=== PATIENT | female | born 1990 | race Caucasian/White ===

== ENCOUNTER 2022-07-08 21:49 | Outpatient (CLI) | payer MEDICAID, OTHER ==
[~2022-07-08] VITALS: Ht 157.5 cm; Wt 64.0 kg
[2022-07-08] MEDS ORDERED: PNV-9 PO (22:00)
[2022-07-08 22:19] LABS: BILIRUBIN,URINE NEGATIVE (NEGATIVE); CLARITY,URINE SL CLOUDY; COLOR,URINE YELLOW; GLUCOSE, URINE (UA) NEGATIVE (NEGATIVE); KETONES,URINE NEGATIVE (NEGATIVE); LEUKOCYTE ESTERASE ,URINE 3+ (NEGATIVE); NITRITE,URINE NEGATIVE (NEGATIVE); PROTEIN,URINE NEGATIVE (NEGATIVE)
[2022-07-08 22:28] LABS: AMORPHOUS SEDIMENT,UR LARGE AMOR PHOSPHATE /LPF; BACTERIA,URINE TRACE /HPF; SQUAMOUS EPITHELIAL CELL,UR 25-50 /HPF
[2022-07-08 22:47] VITALS: BP 107/67
--- NOTE | 2022-07-09 08:06 | Physician Query-Final Dx ---
ROLA,07/09/22 0806: Clinic Account Progress/Dx Physician Query: Please give diagnosis Please include # weeks gestation Date of Service July 08, 2022 at 21:49 CLOTILDE MEDINA DO 07/30/22 0928: Clinic Account Progress/Dx DIAGNOSIS: Diagnosis 25 wk gestation abdominal pain ROLA,FebJuly 09, 2022 08:06 CLOTILDE MEDINA DO Jul 30, 2022 09:28
== END 2022-07-08 22:56 | disposition home or self-care (01) ==
LOC: LDRP 21:49 → WSo 21:49
PROVIDERS: ATTEND Family Medicine
DX: O99.891 Other specified diseases and conditions complicating pregnancy (principal); R10.9 Unspecified abdominal pain; Z3A.25 25 weeks gestation of pregnancy
CPT/HCPCS: 81000; G0463; 99212

== ENCOUNTER 2022-08-27 22:38 | Outpatient (CLI) | payer MEDICAID ==
[~2022-08-27] VITALS: Ht 157.5 cm; Wt 65.0 kg
[~2022-08-27 22:38] MED LIST: PNV-9 PO
[2022-08-27 22:58] VITALS: BP 114/62
[2022-08-27 23:06] LABS: BILIRUBIN,URINE NEGATIVE (NEGATIVE); CLARITY,URINE CLEAR; COLOR,URINE YELLOW; GLUCOSE, URINE (UA) NEGATIVE (NEGATIVE); KETONES,URINE NEGATIVE (NEGATIVE); LEUKOCYTE ESTERASE ,URINE 2+ (NEGATIVE); NITRITE,URINE NEGATIVE (NEGATIVE); PROTEIN,URINE NEGATIVE (NEGATIVE)
[2022-08-27 23:16] LABS: BACTERIA,URINE MODERATE /HPF; RBC,URINE 0-2 /HPF
[2022-08-27 23:17] LABS: AMORPHOUS SEDIMENT,UR RARE AMOR URATES /LPF
[2022-08-27] MEDS ORDERED: CEPHALEXIN 250 MG (KEFLEX) CAP PO ONE (23:30)
[2022-08-28 00:15] VITALS: BP 118/73
--- NOTE | 2022-08-28 07:53 | Physician Query-Final Dx ---
Clinic Account Progress/Dx Physician Query: Please give diagnosis Please include # weeks gestation Date of Service Aug 27, 2022 at 22:38 ROLA,FebAug 28, 2022 07:53
== END 2022-08-28 00:29 | disposition home or self-care (01) ==
LOC: WSo 22:38 → LDRP 22:38 → WSo 08-28 00:29
PROVIDERS: ATTEND Family Medicine
DX: O62.9 Abnormality of forces of labor, unspecified (principal); O46.90 Antepartum hemorrhage, unspecified, unspecified trimester; Z3A.00 Weeks of gestation of pregnancy not specified
CPT/HCPCS: 81000; 84112; 87077; 87088; 87186; G0463; 99214

== ENCOUNTER 2022-09-20 02:50 | Outpatient (CLI) | payer MEDICAID ==
[~2022-09-20] VITALS: Ht 157.5 cm; Wt 65.8 kg
[2022-09-20] MEDS ORDERED: MELA10TA3 PO (03:08)
[2022-09-20 03:10] VITALS: BP 121/69
[2022-09-20 03:12] LABS: BILIRUBIN,URINE NEGATIVE (NEGATIVE); CLARITY,URINE CLEAR; COLOR,URINE YELLOW; GLUCOSE, URINE (UA) NEGATIVE (NEGATIVE); KETONES,URINE NEGATIVE (NEGATIVE); LEUKOCYTE ESTERASE ,URINE 2+ (NEGATIVE); NITRITE,URINE POSITIVE (NEGATIVE); PH,URINE 6.5 (5-9); PROTEIN,URINE NEGATIVE (NEGATIVE)
[2022-09-20 03:22] LABS: BACTERIA,URINE LARGE /HPF
[2022-09-20] MEDS ORDERED: ACETAMINOPHEN 500 MG TABLET PO ONE (03:30)
[2022-09-20] MEDS ORDERED: hydrOXYzine (VISTARIL/ATARAX) 25 MG capsule/tablet PO ONE (03:30)
[2022-09-20] MEDS ORDERED: NITROFURANTOIN 100 MG (MACROBID) CAPSULE PO ONE ×2 (03:30→03:39)
[2022-09-20] MEDS ORDERED: hydrOXYzine (VISTARIL/ATARAX) 25 MG capsule/tablet ONE (03:31)
[2022-09-20] MEDS ORDERED: ACETAMINOPHEN 500 MG TABLET ONE (03:31)
[2022-09-20 04:57] VITALS: BP 115/70
[2022-09-20] MEDS ORDERED: TERBUTALINE INJ 1 MG/ML (BRETHINE) AMP ONE (05:08)
[2022-09-20] MEDS ORDERED: TERBUTALINE INJ 1 MG/ML (BRETHINE) AMP SC ONE (05:15)
--- NOTE | 2022-09-21 09:14 | Physician Query-Final Dx ---
Clinic Account Progress/Dx Physician Query: Please give diagnosis Please include # weeks gestation Date of Service Sep 20, 2022 at 02:50 ROLA,FebSep 21, 2022 09:14
== END 2022-09-20 07:34 | disposition home or self-care (01) ==
LOC: LDRP 02:50 → WSo 02:50
PROVIDERS: ATTEND Family Medicine
DX: O62.9 Abnormality of forces of labor, unspecified (principal); Z3A.35 35 weeks gestation of pregnancy
CPT/HCPCS: 81000; 87088; 96372; 99213

== ENCOUNTER 2022-09-23 05:31 | Outpatient (CLI) | payer MEDICAID ==
[~2022-09-23] VITALS: Ht 157.5 cm; Wt 65.9 kg
[~2022-09-23 05:31] MED LIST changes: +MELA10TA3 PO
[2022-09-23] MEDS ORDERED: NITR100C PO (12:23)
== END 2022-09-23 12:49 | disposition home or self-care (01) ==
LOC: PREOP 05:31
PROVIDERS: ATTEND Obstetrics & Gynecology
DX: Z01.818 Encounter for other preprocedural examination (principal)

== ENCOUNTER 2022-09-30 05:29 | Inpatient (IN) | payer MEDICAID ==
[2022-09-30] VITALS (9 sets, daily range): BP systolic 97–129; BP diastolic 43–80
[~2022-09-30] VITALS: Ht 157.5 cm; Wt 65.0 kg
[~2022-09-30 05:29] MED LIST changes: +NITR100C PO
[2022-09-30] MEDS ORDERED: METOCLOPRAMIDE INJ 10 MG/2 ML (REGLAN) IV ONE (05:45)
[2022-09-30] MEDS ORDERED: LACTATED RINGERS 1,000 ML IV PRN ×2 (05:45)
[2022-09-30] MEDS ORDERED: CLINDAMYCIN 600 MG/50 ML IVPB 50 ML IV ONE (05:45)
[2022-09-30] MEDS ORDERED: CITRIC ACID/SODIUM CITRATE ORAL SOLN 30 ML PO ONE (05:45)
[2022-09-30] MEDS ORDERED: FAMOTIDINE INJ 20MG/2ML VIAL IV ONE (05:45)
[2022-09-30 06:05] LABS: BASOPHILS # (AUTO) 0.1 10^3/uL (0.0-0.1); BASOPHILS % (AUTO) 1 % (0-10); EOSINOPHILS # (AUTO) 0.4 10^3/uL (0.0-0.3); EOSINOPHILS % (AUTO) 3 % (0-10); HEMATOCRIT 33 % (35-52); HEMOGLOBIN 10.9 g/dL (11.5-16.0); LYMPHOCYTES # (AUTO) 3.2 10^3/uL (1.0-4.0); LYMPHOCYTES % (AUTO) 27 % (12-44); MEAN CORPUSCULAR HEMOGLOBIN 28 pg (25-34); MEAN CORPUSCULAR HGB CONC 33 g/dL (32-36); MEAN CORPUSCULAR VOLUME 86 fL (80-99); MEAN PLATELET VOLUME 9.6 fL (9.0-12.2); MONOCYTES # (AUTO) 1.2 10^3/uL (0.0-1.0); MONOCYTES % (AUTO) 10 % (0-12); NEUTROPHILS # (AUTO) 7.1 10^3/uL (1.8-7.8); NEUTROPHILS % (AUTO) 59 % (42-75); PLATELET COUNT 446 10^3/uL (130-400)
[2022-09-30] MEDS ORDERED: fentaNYL INJECTION 100 MCG/2 ML VIAL ONE (07:03)
[2022-09-30] MEDS ORDERED: OXYTOCIN PRE-MIX DRIP 1,000 ML IV ONE (07:03)
[2022-09-30] MEDS ORDERED: ONDANSETRON 4 MG/2 ML (SDV) Z0FRAN ONE (07:03)
--- NOTE | 2022-09-30 07:15 | History & Physical-OB ---
OB - Chief Complaint & HPI Date/Time Date of Admission: Date of Admission: Sep 30, 2022 at 05:29 Date seen by a Provider: Sep 30, 2022 Time Seen by a Provider: 07:00 Chief Complaint/History OB-Reason for Admission/Chief: Section Hx : 5 Hx Para: 3 Expected Date of Delivery: Oct 20, 2022 Gestational Age in Weeks: 37 Gestational Age in Days: 1 Indication for : desires repeat Admission Nurse Assessment Rev: Yes Allergies and Home Medications Allergies Coded Allergies: Penicillins (Verified Allergy, Severe, Anaphylaxis, 09/23/22) Patient Home Medication List Home Medication List Reviewed: Yes Melatonin (Melatonin) 10 Mg Tablet.er, 20 MG PO, (Reported) Entered as Reported by: RAMYA NG on 09/20/22 0308 Last Action: Reviewed Nitrofurantoin Macrocrystal (Nitrofurantoin) 100 Mg Capsule, 100 MG PO BID, ( Reported) Entered as Reported by: Leonela Willis on 09/23/22 1223 Last Action: Reviewed Pnv 119/Iron Fum/Folic Acid ( 19 Tablet) 29 Mg Iron-1 Mg Tablet, 1 EACH PO DAILY, (Reported) Entered as Reported by: Pinky Dooley on 07/08/22 2200 Last Action: Reviewed OB - History Hx of Present Care: Yes Ultrasounds: Normal mid trimester US Obstetrical Complications: Autoimmune Disease (JKA+) Medical Complications: None Information Induced Hypertension: No Maternal Gestational Diabetes: No Hemorrhage: No Obstetrical History Hx : 5 Hx Para: 3 Hx # Term Pregnancies: 2 Hx # Pregnancies: 1 Number of Living Children: 3 Hx Total # of Abortions (Spona: 1 Hx Multiple Gestation: No Hx Ectopic : No Hx Stillbirth: No Hx Complication: No Hx Induced Hypertens: No Hx Maternal Gestational Diabet: No Hx Hemorrhage: No Delivery History Hx Section: Yes (X3) Adverse Rxn to Tranfusion: No Patient Past Medical History MOHR Social History/Family History 2nd Hand Smoke Exposure: No Immunizations First/Initial COVID19 Vaccine: NONE Second COVID19 Vaccination: NONE Third COVID19 Vaccination Date: NONE Hepatitis A: Yes Hepatitis B: Yes Tetanus Booster (TDap): Less than 5yrs OB - Admission Exam Physical Exam Vitals: Vital Signs 09/30/22 06:00 Temp 36.6 Pulse 87 Resp 18 Pulse Ox 98 O2 Delivery Room Air HEENT: NCAT Heart: Rhythm Normal Lungs: Clear Abdomen: Gravid Extremities: Normal Reflexes: Normal Membranes: Intact Heart Rate: 130's Accelerations: Accelerations Present Decelerations: No Decelerations Short Term Variability: Present Flight Reservations Manager Variability: Average (6-25) Contractions on Admission: 6-10 Minutes Apart Intensity: Mild Labs Laboratory Tests Test 09/30/22 05:50 Range/Units White Blood Count 12.0 H 4.3-11.0 10^3/uL Red Blood Count 3.88 3.80-5.11 10^6/uL Hemoglobin 10.9 L 11.5-16.0 g/dL Hematocrit 33 L 35-52 % Mean Corpuscular Volume 86 80-99 fL Mean Corpuscular Hemoglobin 28 25-34 pg Mean Corpuscular Hemoglobin Concent 33 32-36 g/dL Red Cell Distribution Width 14.1 10.0-14.5 % Platelet Count 446 H 130-400 10^3/uL Mean Platelet Volume 9.6 9.0-12.2 fL Immature Granulocyte % (Auto) 1 % Neutrophils (%) (Auto) 59 42-75 % Lymphocytes (%) (Auto) 27 12-44 % Monocytes (%) (Auto) 10 0-12 % Eosinophils (%) (Auto) 3 0-10 % Basophils (%) (Auto) 1 0-10 % Neutrophils # (Auto) 7.1 1.8-7.8 10^3/uL Lymphocytes # (Auto) 3.2 1.0-4.0 10^3/uL Monocytes # (Auto) 1.2 H 0.0-1.0 10^3/uL Eosinophils # (Auto) 0.4 H 0.0-0.3 10^3/uL Basophils # (Auto) 0.1 0.0-0.1 10^3/uL Immature Granulocyte # (Auto) 0.2 H 0.0-0.1 10^3/uL OB - Assessment/Plan/Diagnosis Assessment Assessment: section Admission Dx IUP@ 37w1d JKA+ previous CSx3 Admission Status: Inpatient Order (span 2 midnights) Reason for Inpatient Admission: Repeat LTCS Plan Plan: Section Copy Copies To 1: TANNER RIVERA MD, VICTORIA A DO Sep 30, 2022 07:15
[2022-09-30] MEDS ORDERED: KETAMINE 50 MG/5 ML SYRINGE ONE (07:39)
[2022-09-30] MEDS ORDERED: LIDOCAINE 1% INJ 10 ML VIAL ONE (07:40)
[2022-09-30] MEDS ORDERED: MIDAZOLAM 2 MG/2 ML (VERSED) VIAL ONE (07:42)
[2022-09-30] MEDS ORDERED: BUPIVACAINE 0.25% 10 ML VIAL ONE (08:06)
[2022-09-30] MEDS ORDERED: proPOfol 200 MG/20 ML (DIPRIVAN) VIAL IV ONE (08:21)
[2022-09-30] MEDS ORDERED: LIDOCAINE 1% INJ 10 ML VIAL INJ ONE (08:51)
--- NOTE | 2022-09-30 08:51 | Cesarean Section Operative ---
Procedure Procedure Note Pre-operative Diagnosis: Lea christian (30 /Para 5 / 3, Gestational Age (wks)[id number] +JKA antibody Post-operative Diagnosis: same Plus liveborn female Procedure: Repeat low transverse section Physician: SINGH CEDENO Feltmaker: DANNA Rick Estimated blood loss: 1000 mL Disposition: Stable to PACU Counts correct x3 Findings: Liveborn female , Apgars8/9, weight 5#12ozs, intact placenta, 3vc, normal appearing uterus, tubes, and ovaries. Indications:Lea christian (30 /Para 5 / 3,Gestational Age (wks) 37 presenting for []. Procedure Details: The patient was seen in pre-op and the procedure was discussed with the patient in full, including the risks, benefits, and alternatives. All questions were answered. The patient was taken to the operating room and a time out was performed, verifying patient and procedure. After spinal anesthesia was placed by our anesthesia colleagues, the patient was placed in the dorsal supine with leftward tilt for uterine displacement.~ Her abdomen was then prepped and draped in the typical sterile fashion. A Pfannenstiel skin incision was made around the old scar and removed using a scalpel as well as cautery and carried down through the underlying fascia. The fascia was incised in the midline and tented up using Krysta clamps. On both the inferior and superior fascia side the rectus muscle was dissected off bluntly and sharply using Krishnamurthy scissors and Bovie cautery. There was extensive adhesions. The peritoneum was identified and entered bluntly in the midline. This was then stretched laterally using manual strength. After entering the abdominal cavity and noting extensive intraperitoneal adhesions, the lower uterine segment was visualized. A scalpel was utilized to make a low transverse uterine incision. Amniotomy was performed with return of clear fluid. Mc forceps were used to bring the infant's head to the level of the incision. Fundal pressure was applied and was delivered with the aid of Mc Forceps without difficulty. Mouth and nares were suctioned with bulb suction. After 60seconds the umbilical cord was clamped and cut, the infant was handed off to the pediatric staff. A sample of cord blood was then obtained. The placenta was delivered intact via uterine massage. The uterus was left inside because of the extensive adhesions and cleared of all clots and debris. The uterine incision was closed using 0 Vicryl in a running interlocking fashion. A second imbricated layer was placed using 0 Vicryl in a running fashion as well. Again the hysterotomy site was examined and after several interruptes stitches with 0 vicryl hemostasis was obtained. The bilateral tubes and ovaries appeared normal. The fascia was closed with 0 Vicryl in a running fashion. The subcutaneous space was hemostatic, undermined and irrigated. The skin was then closed using 4-0 Monocryl in a running subcuticular fashion. The s kin edges were reapproximated together and were hemostatic. Dermabond was applied. All sponge, lap and needle counts were correct x3 at the end of the procedure per nursing. Vitals - Labs Vital Signs - I&O Vital Signs Date Time Temp Pulse Resp B/P (MAP) Pulse Ox O2 Delivery O2 Flow Rate FiO2 09/30/22 06:00 36.6 87 18 98 Room Air Labs Laboratory Tests 09/30/22 05:50: White Blood Count 12.0H, Red Blood Count 3.88, Hemoglobin 10.9L, Hematocrit 33L, Mean Corpuscular Volume 86, Mean Corpuscular Hemoglobin 28, Mean Corpuscular Hemoglobin Concent 33, Red Cell Distribution Width 14.1, Platelet Count 446H, Me an Platelet Volume 9.6, Immature Granulocyte % (Auto) 1, Neutrophils (%) (Auto) 59, Lymphocytes (%) (Auto) 27, Monocytes (%) (Auto) 10, Eosinophils (%) (Auto) 3, Basophils (%) (Auto) 1, Neutrophils # (Auto) 7.1, Lymphocytes # (Auto) 3.2, Monocytes # (Auto) 1.2H, Eosinophils # (Auto) 0.4H, Basophils # (Auto) 0.1, Immature Granulocyte # (Auto) 0.2H SINGH CEDENO DO Sep 30, 2022 08:51
[2022-09-30] MEDS ORDERED: MEPERIDINE (DEMEROL) INJ 50 MG/ML IVP ONE (09:00)
[2022-09-30] MEDS ORDERED: morphine INJ 10 MG/ML 1ML (SYR OR VIAL) IVP ONE (09:00)
[2022-09-30] MEDS ORDERED: ONDANSETRON 4 MG/2 ML (SDV) Z0FRAN IVP PRN ×2 (09:00→11:30)
[2022-09-30] MEDS ORDERED: PROMETHAZINE INJ 25 MG/ML (PHENERGAN) AMP IVP ONE (09:00)
[2022-09-30] MEDS ORDERED: ONDANSETRON 4 MG/2 ML (SDV) Z0FRAN IV PRN (09:00)
[2022-09-30] MEDS ORDERED: diphenhydrAMINE INJ 50 MG/ML VIAL IV PRN (09:00)
[2022-09-30] MEDS ORDERED: NALOXONE 0.4 MG/ML 1 ML (NARCAN) VIAL IV PRN ×3 (09:00→11:30)
[2022-09-30] MEDS ORDERED: METOCLOPRAMIDE INJ 10 MG/2 ML (REGLAN) IV PRN (09:00)
[2022-09-30] MEDS ORDERED: KETOROLAC INJ 30 MG/ML VIAL ONE (10:12)
[2022-09-30] MEDS: OXYTOCIN PRE-MIX DRIP 500 ML IV ONE ×2 (10:20→13:42)
[2022-09-30] MEDS: KETOROLAC INJ 15 MG/ML VIAL IV SCH ×3 (10:20→22:26)
[2022-09-30] MEDS ORDERED: MEASLES,MUMPS,RUBELLA 1 EA INJ SC SCH (11:30)
[2022-09-30] MEDS ORDERED: Tetanus/Diphtheria/Pertussis (Acell) ADULT Vaccine 0.5 ML IM SCH (11:30)
[2022-09-30] MEDS ORDERED: OXYTOCIN PRE-MIX DRIP 500 ML IV SCH (11:30)
[2022-09-30] MEDS ORDERED: CATHETER FLUSH 10 ML SYR IV SCH (14:00)
[2022-09-30] MEDS: HYDROcodone/ACETAMINOPHEN 5 MG/325 MG TABLET PO PRN ×2 (14:01→18:21)
[2022-09-30] MEDS: DOCUSATE SODIUM 100 MG CAPSULE PO SCH (22:26)
[2022-10-01] MEDS: HYDROcodone/ACETAMINOPHEN 5 MG/325 MG TABLET PO PRN ×4 (00:08→20:26)
[2022-10-01 00:10] VITALS: BP 107/54
[2022-10-01] MEDS: KETOROLAC INJ 15 MG/ML VIAL IV SCH (03:59)
[2022-10-01 04:30] VITALS: BP 107/59
[2022-10-01 06:25] LABS: BASOPHILS # (AUTO) 0.1 10^3/uL (0.0-0.1); BASOPHILS % (AUTO) 1 % (0-10); EOSINOPHILS # (AUTO) 0.4 10^3/uL (0.0-0.3); EOSINOPHILS % (AUTO) 3 % (0-10); HEMATOCRIT 22 % (35-52); LYMPHOCYTES % (AUTO) 21 % (12-44); MEAN CORPUSCULAR HEMOGLOBIN 28 pg (25-34); MEAN CORPUSCULAR HGB CONC 32 g/dL (32-36); MEAN CORPUSCULAR VOLUME 87 fL (80-99); MEAN PLATELET VOLUME 9.4 fL (9.0-12.2); MONOCYTES # (AUTO) 1.4 10^3/uL (0.0-1.0); MONOCYTES % (AUTO) 10 % (0-12); NEUTROPHILS # (AUTO) 9.5 10^3/uL (1.8-7.8); NEUTROPHILS % (AUTO) 66 % (42-75); PLATELET COUNT 317 10^3/uL (130-400); WHITE BLOOD COUNT 14.4 10^3/uL (4.3-11.0)
[2022-10-01 06:29] LABS: HEMOGLOBIN 6.9 g/dL (11.5-16.0)
[2022-10-01] MEDS: FERROUS SULFATE 325 MG (IRON) TABLET PO SCH ×2 (08:10→18:04)
[2022-10-01] MEDS: DOCUSATE SODIUM 100 MG CAPSULE PO SCH ×2 (08:15→20:26)
[2022-10-01 08:20] VITALS: BP 105/55
--- NOTE | 2022-10-01 08:25 | Postpartum Progress Note ---
Post Op Post-operative Day #1 Subjective: Patient is without complaints. Ambulating, voiding after singh removed. Tolerating a regular diet without nausea or vomiting. Normal lochia. Pain is well controlled with oral pain medications. Passing flatus. Breast-feeding. [] Objective: VSS AF Labs reviewed Physical Exam: General - Alert and oriented, no apparent distress Breasts symmetrical no erythema or engorgement Abdomen - Soft, appropriately tender to palpation, non-distended, fundus firm at umbilicus Incision - clean, dry and intact; no erythema or induration, no drainage Lochia minimal Extremities - no edema, negative Shiva's bilaterally Assessment: [] post-operative day # 1, status post RLTCS anemia. Recovering well, hemodynamically stable Plan: Routine post-operative care. Encourage breast feeding. Encourage ambulation. VTE prophylaxis: SCDs. Ferrous sulfate supplementation. Plan for discharge [] Vitals - Labs Vital Signs - I&O Vital Signs Date Time Temp Pulse Resp B/P (MAP) Pulse Ox O2 Delivery O2 Flow Rate FiO2 10/01/22 04:30 36.0 85 18 107/59 (75) 98 Room Air 10/01/22 00:10 36.5 82 18 107/54 (71) 97 Room Air 09/30/22 20:05 36.8 91 18 102/54 (70) 99 Room Air 09/30/22 16:21 36.6 09/30/22 16:00 36.6 86 16 103/65 (78) 98 Room Air 09/30/22 14:31 36.6 09/30/22 12:06 35.6 85 16 97/64 (75) 99 Room Air 09/30/22 10:28 Room Air 09/30/22 10:20 36.6 09/30/22 09:29 Room Air 09/30/22 09:29 36.0 16 108/62 (77) 99 Room Air 09/30/22 09:14 36.0 14 101/69 (80) 100 Room Air 09/30/22 09:14 Room Air 09/30/22 09:01 Room Air 09/30/22 09:01 36.6 16 117/43 (67) 100 Room Air 09/30/22 08:46 Room Air 09/30/22 08:46 35.6 16 120/76 (91) 99 Room Air 09/30/22 08:41 Room Air 09/30/22 08:41 35.5 14 120/80 (93) 99 Room Air I & O 10/01/22 07:00 Intake Total 2050 ml Output Total 5 ml Balance 25 ml Labs Laboratory Tests 10/01/22 06:16: White Blood Count 14.4H, Red Blood Count 2.47L, Hemoglobin 6.9#*L, Hematocrit 22L, Mean Corpuscular Volume 87, Mean Corpuscular Hemoglobin 28, Mean Corpuscular Hemoglobin Concent 32, Red Cell Distribution Width 13.9, Platelet Count 317, Mean Platelet Volume 9.4, Immature Granulocyte % (Auto) 1, Neutrophils (%) (Auto) 66, Lymphocytes (%) (Auto) 21, Monocytes (%) (Auto) 10, Eosinophils (%) (Auto) 3, Basophils (%) (Auto) 1, Neutrophils # (Auto) 9.5H, Lymphocytes # (Auto) 3.0, Monocytes # (Auto) 1.4H, Eosinophils # (Auto) 0.4H, Basophils # (Auto) 0.1, Immature Granulocyte # (Auto) 0.1 Microbiology 09/30/22 MRSA Screen - Final, Complete MRSA not isolated SINGH CEDENO DO Oct 01, 2022 08:25
[2022-10-01] MEDS ORDERED: DOCU100C37 PO (08:28)
[2022-10-01] MEDS ORDERED: ACHD5005 PO (08:28)
[2022-10-01] MEDS ORDERED: IBUP-1780 PO (08:28)
[2022-10-01] MEDS ORDERED: FERR325T24 PO (08:28)
[2022-10-01] MEDS: IBUPROFEN 800 MG TABLET PO SCH ×2 (10:27→18:05)
--- NOTE | 2022-10-01 10:54 | Anesthesia-Regional Post-Op ---
Regional Patient Condition Mental Status: Alert, Oriented x3 Circulation: Same as Pre-Op Headache: Absent Sensation: Full Recovery Motor Block: Absent Post Op Complications Complications None Follow Up Care/Instructions Patient Instructions None needed. Anesthesia/Patient Condition Patient is doing well, no complaints, stable vital signs, no apparent adverse anesthesia problems. No complications reported per nursing. TANI MOODY CRNA Oct 01, 2022 10:54
[2022-10-01 11:34] VITALS: BP 107/58
[2022-10-01 16:35] VITALS: BP 107/60
[2022-10-01 20:26] VITALS: BP 106/62
[2022-10-02 03:45] VITALS: BP 116/72
[2022-10-02] MEDS: HYDROcodone/ACETAMINOPHEN 5 MG/325 MG TABLET PO PRN ×2 (03:45→10:56)
[2022-10-02] MEDS: IBUPROFEN 800 MG TABLET PO SCH ×2 (03:45→10:56)
--- NOTE | 2022-10-02 08:31 | Discharge Summary ---
Discharge Summary Hospital Course Problems Reviewed?: Yes Hospital Course Date of Admission: Sep 30, 2022 at 05:29 Admission Diagnosis : Family Physician/Provider: Tanner Wells MD Date of Discharge: 10/02/22 Discharge Diagnosis: s/p RLTCS anemia Hospital Course: Pt was admitted for RLTCS delivered a liveborn and course was uneventful Hgb was 6.9 postop but pt was stable w/o sxs. She was discharged home with pain medication, iron supplements and instructions Labs and Pending Lab Test: Microbiology 09/30/22 MRSA Screen - Final, Complete MRSA not isolated Home Meds Active Reported Nitrofurantoin (Nitrofurantoin Macrocrystal) 100 Mg Capsule 100 Mg PO BID 7 Days Melatonin 10 Mg Tablet.er 20 Mg PO 19 Tablet (Pnv 119/Iron Fum/Folic Acid) 29 Mg Iron-1 Mg Tablet 1 Each PO DAILY Activity: Activity as Tolerated Driving Instructions: No Driving for 1 Week NO SMOKING: NO SMOKING Nothing Inside Vagina: No Douching, No [place], No Tampons Discharge Diet: Regular Diet Symptoms to Report to : Appetite Changes, Bleeding Excessive, Constipation(Persistant), Fever Over 101 Degrees F, Pain/Pressure in Chest, Cough Up/Vomit Blood, Vaginal Bleeding Increase, Vaginal Discharge Foul For Any Problems or Questions: Contact Your Physician Infection Signs and Symptoms: Increased Redness, Foul Odor of Wound, Increased Drainage, Skin Itchy or Has a Rash Operative Area Clean and Dry: Keep Incision Clean/Dry Stitches/Maurisio/Dermabond: Dermabond Bathing Instructions: Shower Discharge Physical Examination Allergies: Coded Allergies: Penicillins (Verified Allergy, Severe, Anaphylaxis, 09/23/22) Vitals & I&Os Vital Signs Date Time Temp Pulse Resp B/P (MAP) Pulse Ox O2 Delivery O2 Flow Rate FiO2 10/02/22 03:45 36.5 81 18 116/72 (87) 98 Room Air General Appearance: No Apparent Distress, WD/WN; No Anxious, No Chronically ill, No Cachetic, No Mild Distress, No Moderate Distress, No Obese, No Severe Distress, No Thin, No Other HEENT: PERRL/EOMI; No TMs Normal, No Normal ENT Inspection, No Pharynx Normal, No Moist Mucous Membranes, No Pale Conjunctivae (L), No Pale Conjunctivae (R), No Pharyngeal Erythema, No Photophobia, No Scleral Icterus (L), No Scleral Icterus (R), No TM Abnormal (L), No TM Abnormal (R), No Tonsillar Exudate, No Tonsillar Enlargement, No Other Respiratory: Chest Non Tender, Lungs Clear, Normal Breath Sounds, No Accessory Muscle Use, No Respiratory Distress; No Accessory Muscle Use, No Crackles, No Decreased Breath Sounds, No Expiration, No Inspiration, No Pleural Rub, No Rales, No Respiratory Distress, No Rhonci, No Stridor, No Wheezing, No Other Cardiovascular: Regular Rate, Rhythm, No Edema; No No Gallop, No No JVD, No No Murmur, No Normal Peripheral Pulses, No Bradycardia, No Diastolic Murmur, No Systolic Murmur, No Extra Beats, No Friction Rub, No Gallop/S3, No Gallop/S4, No Irregularly Irregular, No JVD, No Tachycardia, No Other Gastrointestinal: Normal Bowel Sounds, No Organomegaly; No No Pulsatile Mass, No Non Tender, No Soft, No Abnormal Bowel Sounds, No Distended, No Guarding, No Hepatomegaly, No Hernia, No Mass, No Rebound, No Splenomegaly, No Tenderness, No Other Extremity: Normal Capillary Refill, Normal Inspection, Normal Range of Motion, Non Tender, No Calf Tenderness, No Pedal Edema; No Calf Tenderness, No Inflammation, No Pedal Edema, No Pelvis Stable, No Slow Capillary Refill, No Swelling, No Other Skin: Normal Color, Warm/Dry; No Cool, No Cyanosis, No Damp, No Diaphoresis, No Ecchymosis, No Erythema, No Jaundice, No Mottled, No Pallor, No Petechia, No Rash, No Tattoos/Piercings, No Other Neurologic/Psychiatric: No Alert, No Oriented x3, No No Motor/Sensory Deficits, No Normal Mood/Affect, No public health specialist II-XII Norm as Tested, No Abnormal Cerebellar Tests, No Abnormal public health specialist II-XII, No Abnormal Gait, No Aphasia, No Depressed Affect, No Disoriented, No EOM Palsy, No Facial Droop, No Motor Weakness, No Sensory Deficit, No Other Copy Copies To 1: TANNER WELLS MD Discharge Summary Date of Admission Sep 30, 2022 at 05:29 Date of Discharge Discharge Date: Oct 02, 2022 Discharge Time: 08:30 Supervisory-Addendum Brief Verification & Attestation Participated in pt care: history, MDM, physical Personally performed: exam, history, MDM, supervision of care Care discussed with: Medical Student Procedures: n/a Results interpretation: Verified all documentation I saw and examined pt on own SINGH CEDENO DO Oct 02, 2022 08:31
--- NOTE | 2022-10-02 08:31 | Postpartum Progress Note ---
Post Op Post-operative Day #2 Subjective: Patient is without complaints. Ambulating, voiding after singh removed. Tolerating a regular diet without nausea or vomiting. Normal lochia. Pain is well controlled with oral pain medications. Passing flatus. Breast-feeding. [] Objective: VSS AFF Physical Exam: General - Alert and oriented, no apparent distress Breasts symmetrical no erythema or engorgement Abdomen - Soft, appropriately tender to palpation, non-distended, fundus firm at umbilicus Incision - clean, dry and intact; no erythema or induration, no drainage Lochia minimal Extremities - no edema, negative Shiva's bilaterally Assessment: [] post-operative day #2, status post RLTCS. Recovering well, hemodynamically stable Plan: Routine post-operative care. Encourage breast feeding. Encourage ambulation. VTE prophylaxis: SCDs. Ferrous sulfate supplementation. Plan for discharge [] Vitals - Labs Vital Signs - I&O Vital Signs Date Time Temp Pulse Resp B/P (MAP) Pulse Ox O2 Delivery O2 Flow Rate FiO2 10/02/22 03:45 36.5 81 18 116/72 (87) 98 Room Air 10/01/22 20:26 36.0 85 18 106/62 (77) 98 Room Air 10/01/22 16:35 37.0 84 18 107/60 (76) 98 Room Air 10/01/22 11:34 36.8 82 18 107/58 (74) 97 Room Air I & O 10/02/22 07:00 Intake Total 3000 ml Output Total 3600 ml Balance -600 ml Labs Microbiology 09/30/22 MRSA Screen - Final, Complete MRSA not isolated SINGH CEDENO DO Oct 02, 2022 08:31
[2022-10-02] MEDS ORDERED: SERT-412 PO (08:41)
[2022-10-02] MEDS: FERROUS SULFATE 325 MG (IRON) TABLET PO SCH (09:17)
[2022-10-02] MEDS: DOCUSATE SODIUM 100 MG CAPSULE PO SCH (09:17)
[2022-10-02 09:20] VITALS: BP 103/55
== END 2022-10-02 14:15 | disposition home or self-care (01) | DRG 788 ==
LOC: LDRP 05:29
PROVIDERS: ADMIT Obstetrics & Gynecology; ATTEND Obstetrics & Gynecology
PROC: 10D00Z1 Extraction of Products of Conception, Low, Open Approach (ICD-10-PCS; principal; 2022-09-30 07:16)
DX: O34.211 Maternal care for low transverse scar from previous cesarean delivery (principal); Z3A.37 37 weeks gestation of pregnancy; Z37.0 Single live birth; O90.81 Anemia of the puerperium; D50.0 Iron deficiency anemia secondary to blood loss (chronic)
CPT/HCPCS: 36415; 85025; 86850; 86870; 86900; 86901; 87081; 94664